=== PATIENT | female | born 1995 | race Caucasian/White ===

== ENCOUNTER 2016-10-01 22:40 | Observation (INO) ==
[2016-10-02 00:30] LABS: Bilirubin,Urine Negative (Negative); Blood,Urine Large (Negative); Clarity,Urine Cloudy (Clear); Color,Urine Yellow (Yellow); Glucose,Urine (UA) Normal (Normal); Ketones,Urine Trace mg/dL (Negative); Specific Gravity,Urine 1.016 (1.010-1.025)
[2016-10-02 00:31] LABS: Leukocyte Esterase,Urine Moderate (Negative); Nitrite,Urine Negative (Negative); PH,Urine 6.5 pH Units (5.0-8.0); Protein,Urine Negative (Neg-Trace); Urobilinogen,Urine Normal (Normal)
[2016-10-02 00:36] LABS: Bacteria,Urine Few per hpf (None-Few)
--- NOTE | 2016-10-03 16:18 | OB/GYN Progress Note ---
Date of Encounter: 10/01/16 Time of Encounter: 23:45 - Assessment and Plan (1) 37 weeks gestation of Status: Acute (2) False labor Status: Acute Subjective - Subjective Principal diagnosis: contractions Interval history: 20 yo female presents with c/o uc's, no vb and no LOF Objective - Exam FHR: category 1 - Labs Labs: Abnormal lab results Urine Clarity Cloudy (Clear) A 10/01/16 22:59 Urine Ketones Trace mg/dL (Negative) H 10/01/16 22:59 Urine Blood Large (Negative) H 10/01/16 22:59 Ur Leukocyte Esterase Moderate (Negative) H 10/01/16 22:59 Urine Microscopic RBC 3-5 per hpf (0-3) H 10/01/16 22:59 Urine Microscopic WBC 5-15 per hpf (0-3) H 10/01/16 22:59 Ur Culture Indicated? YES (NO) A 10/01/16 22:59
== END 2016-10-02 01:09 | disposition home or self-care (01) ==
LOC: 1NENULAB
PROVIDERS: ADMIT Obstetrics & Gynecology; ATTEND Obstetrics & Gynecology

== ENCOUNTER 2016-10-18 08:00 | Inpatient (IN) ==
[2016-10-18] MEDS ORDERED: Naloxone 0.4 MG/ML INJ IVP PRN (08:48)
[2016-10-18] MEDS ORDERED: Famotidine 20 MG/2 ML VIAL IVP PRN (08:48)
[2016-10-18] MEDS ORDERED: Ringers Solution, Lactated 1,000 ML IVC SCH (09:00)
[2016-10-18] MEDS ORDERED: miSOPROStol 25 MCG TABLET PO SCH ×2 (09:30→12:00)
[2016-10-18 09:48] LABS: Basophils # 0.1 K/mcL (0.0-0.2); Basophils % 0.4 %; Eosinophils % 0.3 %; Hematocrit 42.6 % (35.3-44.9); Hemoglobin 14.3 g/dL (11.5-15.4); Immature Granulocytes % 1.3 % (0-4); Lymphocytes # 2.1 K/mcL (0.6-4.6); Lymphocytes % 17.4 %; Mean Corpuscular HGB Conc 33.6 g/dL (31.6-35.5); Mean Corpuscular Hemoglobin 28.9 pg (28.0-33.3); Mean Corpuscular Volume 86.1 fL (83.0-100.0); Mean Platelet Volume 11.9 fL (9.4-12.4); Monocytes % 8.1 %; Neutrophils # 8.9 K/mcL (1.6-8.9); Platelet Count 210 K/mcL (140-400); Red Blood Count 4.95 M/mcL (3.82-4.97); Red Cell Distribution Width 13.4 % (11.5-14.5); Segmented Neutrophils % 72.5 %
[2016-10-18] MEDS ORDERED: *HR* Nalbuphine 20 MG/ML AMPUL IVP PRN (09:53)
--- NOTE | 2016-10-18 10:28 | OB/GYN History & Physical ---
Date of Encounter: 10/20/16 Time of Encounter: 10:26 Assessment and Plan (1) 39 weeks gestation of Current visit: Yes Status: Acute Patient is a at 39 weeks + 5 days here for induction of labor. She would like an epidural. Will order labs for epidural. Patient given dose of cytotec. Will continue to monitor progression of . History of Present Illness Chief complaint: Induction of labor HPI: Ms. Gamino is a 20 year old female at 39 weeks + 5 days who presents for scheduled induction of labor. Patient has been following with Dr. Fraser in the office but did not receive pre- care until after 16 weeks. She currently reports that her low back hurts "quite a bit" and she would like an epidural. She reports some light pink blood in her urine and vaginal discharge. She reports her contractions have picked up after receiving cytotec and she is feeling good movement. Patient reports some nausea and diarrhea this morning but states that she is okay now. She denies headache, changes in vision , SOB, chest pain, leg edema. Patient denies any complications with this . She is O+, rubella immune, GBS negative. Past Med Surg Social Fam HX - Past Medical History Medical history: no medical history Psychiatric history: no psych history - Past Surgical History Surgical History: no surgical history - Social History Smoking Status: Former smoker Smokeless Tobacco Status: No Alcohol use: none Drug use: none - Family History Mother Living Status: Still Living Hx Family Cardiac Disorders: Yes (HTN) Hx Family Respiratory Disorders: Yes (asthma) Obstetrical History - Pregnancies : 1 Para: 0 Medications and Allergies Pnv95/Ferrous Fumarate/FA [ Caplet] 1 tab PO DAILY 10/01/16 [History] Allergies No Known Allergies Allergy (Verified 10/01/16 22:44) Review of System OB - Constitutional Constitutional ROS IM: fever(s) - Nose, mouth, and throat Nose, mouth and throat: no nasal congestion, no sore throat - Cardiovascular Cardiovascular: no chest pain - Respiratory Respiratory: no cough, no dyspnea, no wheezing - Gastrointestinal Gastrointestinal: diarrhea, nausea, vomiting Exam - Constitutional Constitutional: well developed, well nourished, no acute distress, average body habitus - HEENT HEENT: Normocephaly, Mucus Membranes Moist - Neck Neck exam: full ROM - Lungs Respiratory exam: CTAB - Cardiovascular Cardiovascular exam: RRR - Abdomen Abdomen: Present: bowel sounds normal, gravid - Extremities Extremities exam: full ROM - Cervix Dilation: 5 (on last office visit) Effacement: 90 (on last office visit) Station: -1 Results Result Diagrams: 10/20/16 04:29 Abnormal lab results WBC 12.3 K/mcL (4.3-11.1) H 10/18/16 09:34 All other labs normal. - VTE Reasons for not Prescribing Prophylaxis: Treatment not Indicated - Low risk for VTE - Attending Attestation I examined this patient and my medical decision-making was reviewed with the Resident Physician. I agree with the documented findings, disposition and treatment plan as described. Marlene Fraser DO
[2016-10-18] MEDS ORDERED: Bupivacaine-MPF 0.25% 10 ML VIAL EP ONE (13:19)
[2016-10-18] MEDS ORDERED: *HR* FentaNYL (PF) 100 MCG/2 ML VIAL EP ONE (13:19)
[2016-10-18] MEDS ORDERED: Epidural Premix (fent/bupiv) 110 ML EP SCH (13:30)
[2016-10-18] MEDS ORDERED: Bupivacaine-MPF 0.25% 10 ML VIAL ONE ×2 (13:31→18:09)
[2016-10-18] MEDS ORDERED: *HR* FentaNYL (PF) 100 MCG/2 ML VIAL ONE ×2 (13:31→18:08)
[2016-10-18] MEDS ORDERED: Epidural Premix (fent/bupiv) 110 ML EP ONE ×2 (13:31→21:14)
--- NOTE | 2016-10-18 14:09 | Anesthesia Evaluation PreOp ---
Date of Encounter: 10/18/16 Time of Encounter: 13:20 - Past History Planned Operation: labor epidural Cardiac History: Denies any Significant Hx Pulmonary History: Denies Any Significant HX GREEN END MAN History: Denies Any Significant HX Other Medical History: Denies Any Significant HX Anesthesia History: No Prior Anesthetic Complications (has never had anesthesia. Denies family history of anesthetic complications.) : Yes Alcohol Use: none Drug use: none Medications and Allergies Pnv95/Ferrous Fumarate/FA [ Caplet] 1 tab PO DAILY 10/01/16 [History] Allergies No Known Allergies Allergy (Verified 10/01/16 22:44) - Meds/Allergy Pre-op Review Medications Reviewed: Yes Allergies Reviewed: Yes Beta Blockers on Current Med List: No Anesthesia Results - Labs 10/18/16 09:34 Anesthesia Exam 113/55, 95, 14, 97% Height: 5'2" Weight: 73 kg NPO (# of Hours): 6 Pain Scale: 4 Pain Scale Used: Numeric (1 - 10) - HEENT Pupil (Motor): Pupils equal, EOMI Mallampati: II Oral Opening: Greater than 3 - GREEN END MAN LOC: Oriented GREEN END MAN Motor: Normal RUE, Normal LUE, Normal RLE, Normal LLE, Normal Face GREEN END MAN Sensory: Normal: RUE, LUE, RLE, LLE, Face - Cardiac Rhythm: Regular Murmur: None - Pulmonary Breath Sounds: bilateral Clear Respiratory Effort: Symmetrical Anesthesia Assess/Plan ASA Score: 2 Modified [place] Scale for Level of Consciousness: Cooperative, oriented, and tranquil Anesthetic Plan: Regional Monitoring Plan: Standard Monitors
--- NOTE | 2016-10-18 14:14 | Anesthesia Procedures ---
Date of Encounter: 10/18/16 Time of Encounter: 13:30 Procedures: Anesthesia - Epidural/Spinal Patient ID/Chart reviewed: Yes Patient examined: Yes OB Eval: Gestational age: 39 OB Eval: : 1 OB Eval: Hx Para: 0 OB Eval: Dilated at (cm): 6 OB Eval: Contractions: Non-stressed pattern Consent Obtained: Yes Supplemental Oxygen: None/Room Air Site Prep: Aseptic Technique, Sterile prep and drape, Povidone-Iodine 1% Patient position: upright Local Anesthetic: Lidocaine 1% Amount of Local Anesthetic used: 3 Touhy Needle Gauge: 18 Touhy Needle Depth (cm): 5 Catheter Depth at Skin (cm): 16 Test Dose (1.5% Lido + Epi): Volume given (mls): 3 Test Dose Result: Negative Loading Dose: 0.25% Marcaine (mls): 8 Loading Dose: Fentanyl (mcg): 100 Loading Dose Administered: Thru Catheter Infusion Med: 0.125% Bupivacaine w/ 2 mcg/ml Fentanyl Infusion Rate (mls/hr): [address]: Tegaderm, Tape Interspace Used: L3-L4 Loss of Resistance (OLESYA): Yes Blood: No CSF: No Paresthesia: No Vitals + FHT's: 3 Vital Signs Time 1330 1335 1340 1345 1350 1355 1400 1405 BP 131/72 117/56 112/56 114/54 112/61 110/64 109/56 114/54 Pulse 123 107 100 102 92 96 97 96 FHTs 140 140 130 140 140 140 140 140
[2016-10-18] MEDS ORDERED: EPHEDrine 50 MG/ML VIAL ONE (14:18)
[2016-10-18] MEDS ORDERED: Water for inj. (sterile) 10 ML IV ONE (14:19)
--- NOTE | 2016-10-18 14:29 | Anesthesia Progress Note ---
Date of Encounter: 10/18/16 Time of Encounter: 14:15 Anesthesia Note - Note Note: 10/18/16 14:27 patient's baby noted to be having decels per OB RNs. patient placed on left side. BP 79/46 at 1416. Gave ephedrine 10mg IVP. @ 1420 BP 82/49. Repeated Ephedrine 10mg IVP. @1422 BP 90/53. @1425 BP 125/63, no further decels noted on monitor.
--- NOTE | 2016-10-18 16:43 | OB Labor Progress Note ---
Date of Encounter: 10/18/16 Time of Encounter: 16:41 Labor Progress Note - Subjective Subjective: Pt comfortable with epidural - Cervix Cervix: 6/90/-1 - Heart Tones Heart Tones: Category I - Terry Terry: 2-4 minutes - Interventions Interventions: IUPC placed - Plan Plan: Continue to monitor.
[2016-10-18] MEDS ORDERED: Oxytocin 20 units/ LR 1000 mL 20 UNIT/1,000 ML BAG IVC ONE (21:45)
[2016-10-19] MEDS ORDERED: Acetaminophen 325 MG TABLET PO ONE (00:24)
[2016-10-19] MEDS ORDERED: Lidocaine 1% 20 ML MDV ONE (02:41)
--- NOTE | 2016-10-19 03:30 | OB/GYN Procedure Note ---
Delivery - Delivery Date: 10/19/16 Provider: Marlene Fraser Intrapartum events: none, prolonged 2nd stage>2.5hr Delivery induction: AROM, misoprostol Delivery monitor: external FHT, external uterine, internal uterine - (s) A Delivery Date: 10/19/16 Infant Delivery Time: 03:07 Presentation: vertex Position: LAM Route of delivery: Gender: Female Viability: Viable Pounds: 7 Ounces: 11 Weight Gram: 3.5 kg at 1 minute: 8 at 5 mins: 9 Shoulder Dystocia: encountered Shoulder Dystocia Maneuvers: Ara maneuver, suprapubic pressure, Bernal Screw maneuver, delivery of posterior arm Shoulder dystocia time elapsed: 1:24 Specimens collected: cord blood Placenta: spontaneous Cord: 3 umbilical vessels - Repair Episiotomy: none Laceration Description: Perineal - 3rd Degree - Complications Delivery complications: none Delivery comments: Called to room with patient complete and +3 station. Under maternal effort she delivered a viable female weighing 7 lbs. 11 oz. with Apgars of 891 and 5 minutes respectively. Following the delivery of the head the was bulb suctioned. Shoulder dystocia was identified. Patient was placed in Ara position. Suprapubic pressure was attempted and unsuccessful. Delivery of the posterior arm across the chest was successful in the shoulder dystocia resolved. Infant was placed on mom's abdomen and had good tone and was crying. Cord was clamped and cut. A segment of cord was collected for cord gases. Cord blood was collected. Placenta delivered spontaneously, complete, and intact with a three-vessel cord. She had a third-degree perineal laceration that was repaired using 2-0 and 3-0 Vicryl in standard fashion. She delivered at dinner epidural anesthesia placed by Mary Cantu CRNA. Mother and infant are recovering in the LDR in stable condition - Disposition Mom disposition: stable in LDR [place] disposition: stable in LDR
[2016-10-19] MEDS ORDERED: Oxytocin 20 units/ LR 1000 mL 20 UNIT/1,000 ML BAG IVC ONE (04:09)
[2016-10-19] MEDS ORDERED: Acetaminophen 325 MG TABLET PO PRN (04:09)
[2016-10-19] MEDS ORDERED: Oxytocin 20 units/ LR 1000 mL 20 UNIT/1,000 ML BAG IV SCH (04:09)
[2016-10-19] MEDS: Ibuprofen 600 MG TABLET PO PRN ×3 (04:18→19:44)
[2016-10-19] MEDS: Prenatal Vit/FA 1 EACH TABLET PO SCH (08:24)
[2016-10-19] MEDS: *HR* HYDROcodone/Acet 5/325 mg TABLET PO PRN ×3 (08:35→19:44)
[2016-10-19] MEDS: Benzocaine/Menthol 56 GM AEROSOL SPRAY TP PRN (13:57)
[2016-10-19] MEDS: Sennosides 8.6 MG TABLET PO SCH (20:51)
[2016-10-20] MEDS: *HR* HYDROcodone/Acet 5/325 mg TABLET PO PRN ×4 (00:38→20:30)
[2016-10-20] MEDS: Ibuprofen 600 MG TABLET PO PRN ×4 (02:27→20:30)
[2016-10-20 05:16] LABS: Basophils # 0.1 K/mcL (0.0-0.2); Basophils % 0.4 %; Eosinophils # 0.2 K/mcL (0.0-0.6); Eosinophils % 1.3 %; Hematocrit 33.1 % (35.3-44.9); Lymphocytes # 2.9 K/mcL (0.6-4.6); Mean Corpuscular Hemoglobin 28.3 pg (28.0-33.3); Mean Corpuscular Volume 88.5 fL (83.0-100.0); Mean Platelet Volume 11.8 fL (9.4-12.4); Monocytes % 6.1 %; Neutrophils # 11.6 K/mcL (1.6-8.9); Platelet Count 157 K/mcL (140-400); Red Blood Count 3.74 M/mcL (3.82-4.97); Red Cell Distribution Width 13.7 % (11.5-14.5); Segmented Neutrophils % 73.2 %
[2016-10-20 05:26] LABS: Hemoglobin 10.6 g/dL (11.5-15.4)
[2016-10-20] MEDS: Prenatal Vit/FA 1 EACH TABLET PO SCH (08:33)
--- NOTE | 2016-10-20 10:53 | OB/GYN Progress Note ---
Date of Encounter: 10/20/16 Time of Encounter: 10:51 - Assessment and Plan (1) Status post vaginal delivery Current Visit: Yes Status: Chronic Routine PP care. (2) 39 weeks gestation of Current Visit: Yes Status: Acute Subjective - Subjective Principal diagnosis: s/p vaginal delivery Patient reports: appetite normal, voiding normally, pain well controlled, ambulating normally, no nauseated : doing well, in NICU (jaundice) Objective - Latest Vital Signs Latest vital signs: Vital Signs Temp Pulse Resp BP Pulse Ox 10/20/16 10:00 97.7 F 76 16 104/58 98 10/20/16 08:35 16 10/20/16 03:20 97.9 F 82 16 111/69 99 10/19/16 19:45 98.5 F 88 16 126/84 98 10/19/16 16:00 98.0 F 96 16 127/81 97 10/19/16 15:39 20 Intake and Output 10/19/16 10/20/16 10/20/16 23:59 07:59 15:59 Intake Total 1120 / 1120 600 / 600 Output Total 1250 / 1250 1000 / 1000 400 / 400 Balance -130 / -130 -400 / -400 -400 / -400 Intake: Oral 1120 / 1120 600 / 600 Output: Urine 1250 / 1250 1000 / 1000 400 / 400 Other: Weight 69.8 kg Patient Weight 10/20/16 23:59 Weight 69.8 kg - Exam Lungs: bilateral: normal Chest: Normal S1, Normal S2 Extremities: Present: normal Abdomen: Present: normal appearance, soft Uterus: Present: normal, firm Uterus Position: At Umbilicus - Labs Labs: Laboratory Results - last 24 hr 10/20/16 04:29 WBC 15.9 H RBC 3.74 L Hgb 10.6 L D Hct 33.1 L MCV 88.5 MCH 28.3 MCHC 32.0 RDW 13.7 Plt Count 157 MPV 11.8 Immature Gran % 1.0 Seg Neutrophils % 73.2 Lymphocytes % 18.0 Monocytes % 6.1 Eosinophils % 1.3 Basophils % 0.4 Neutrophils # 11.6 H Lymphocytes # 2.9 Monocytes # 1.0 Eosinophils # 0.2 Basophils # 0.1
[2016-10-20] MEDS: Sennosides 8.6 MG TABLET PO SCH (20:33)
[2016-10-21] MEDS: *HR* HYDROcodone/Acet 5/325 mg TABLET PO PRN ×2 (02:27→06:59)
[2016-10-21 07:56] VITALS: BP 101/63
--- NOTE | 2016-10-21 08:19 | Discharge Summary ---
Date of Encounter: 10/21/16 Time of Encounter: 08:16 - Discharge Diagnosis (1) Vaginal delivery Priority: Primary Status: Acute Comments: Continue routine care discharge home today (2) Third degree laceration of perineum during delivery, Priority: Secondary Status: Acute Comments: Continue colace ice pack and sitz bath prn - Discharge Medications Prescriptions: Ibuprofen [Motrin] 600 mg PO Q6HR PRN #60 tablet PRN Reason: Cramping Docusate [Colace] 100 mg PO BID #60 capsule Home Medications: Pnv95/Ferrous Fumarate/FA [ Caplet] 1 tab PO DAILY 10/01/16 [History] Docusate [Colace] 100 mg PO BID #60 capsule 10/21/16 [Rx] Ibuprofen [Motrin] 600 mg PO Q6HR PRN #60 tablet 10/21/16 [Rx] Vit/FA 1 each PO DAILY tablet 10/21/16 [Rx] Allergies/Adverse Reactions: Allergies No Known Allergies Allergy (Verified 10/01/16 22:44) Data Procedures and tests throughout hospitalization: Laboratory Tests 10/18/16 10/20/16 09:34 04:29 WBC 12.3 H 15.9 H RBC 4.95 3.74 L Hgb 14.3 10.6 L D Hct 42.6 33.1 L MCV 86.1 88.5 MCH 28.9 28.3 MCHC 33.6 32.0 RDW 13.4 13.7 Plt Count 210 157 MPV 11.9 11.8 Immature Gran % 1.3 1.0 Seg Neutrophils % 72.5 73.2 Lymphocytes % 17.4 18.0 Monocytes % 8.1 6.1 Eosinophils % 0.3 1.3 Basophils % 0.4 0.4 Neutrophils # 8.9 11.6 H Lymphocytes # 2.1 2.9 Monocytes # 1.0 1.0 Eosinophils # 0.0 0.2 Basophils # 0.1 0.1 Date of admission: 10/18/16 08:08 Primary care physician: Maryellen Chandra Consults: 10/19/16 04:09 Consult to Cryptographic Clerk [CONS] Routine Comment: Vaginal delivery, consult needed Consult to Economics Analyst [CONS] Routine Reason for SW Consult: inadequate care. Discharging clinician: Rose Campos Anticipated date of discharge: 10/21/16 - Patient Status Disposition: Home, Self-Care Condition: Good - Discharge Instructions Follow Up With: Danae Hart, RODRIGUEZ [Primary Care Provider] - Marlene Fraser DO [Partnered Physician] - - Diet and Activity Activity: increase activity as tolerated Diet: regular diet Hospital Course Delivery: Episiotomy: none Laceration: 3rd degree Other procedures: none complications: none Discharge diagnosis: IUP at term delivered [place] baby: female (bottle feeding) Time Attestation: Total time spent providing and/or coordinating discharge services: Time Spent: Less than 30 minutes Exam - Constitutional Vitals: Temp Pulse Resp BP Pulse Ox 98.1 F 79 16 101/63 99 10/21/16 07:55 10/21/16 07:55 10/21/16 07:55 10/21/16 07:55 10/21/16 07:55 General appearance IM: A&O X 3, pleasant, answers questions appropriately - Respiratory Respiratory exam: Present: CTAB - Cardiovascular Cardiovascular exam IM: Present: RRR, +S1, +S2 - GI/Abdominal GI/Abdominal exam IM: normal bowel sounds - Uterine Tone: Firm Uterus Position: 2 Fingers Below Umbilicus, Midline - Extremities Exam Extremities exam IM: Present: full ROM, normal capillary refill, normal inspection - Neurological Exam Neurological exam: oriented X3, reflexes normal
[2016-10-21] MEDS: Prenatal Vit/FA 1 EACH TABLET PO SCH (08:31)
[2016-10-21] MEDS: Ibuprofen 600 MG TABLET PO PRN (08:32)
[2016-10-21] MEDS: Benzocaine/Menthol 56 GM AEROSOL SPRAY TP PRN (08:32)
== END 2016-10-21 09:40 | disposition home or self-care (01) | DRG 542 ==
LOC: 1NENULAB 08:08 → 1NENUOBS 10-19 05:59
PROVIDERS: ADMIT Obstetrics & Gynecology; ATTEND Obstetrics & Gynecology